=== PATIENT | male | born 1960 | race Caucasian/White ===

== ENCOUNTER 2020-05-14 10:49 | Emergency (ER) | payer OTHER ==
[~2020-05-14 10:49] MED LIST: AUGMENTIN 875-1 EACH PO; CYCLOBENZAPRINE10 MG PO; CYMBALTA60 MG PO; GLUCOPHAGE500 MG PO; HUMALOG100 UNIT/1 SQ; LIPITOR40 MG PO; LITHIUM CARBON300 M4 PO; METOPROLOL TART25 MG PO; NORVASC5 MG PO; PROTONIX40 MG PO; TOUJEO MAX300 UNIT/1 SQ; VITAMIN D10000 UNIT PO; XANAX XR0.5 MG PO; ZESTRIL40 MG PO
[2020-05-14 11:40] LABS: HEMOGLOBIN 13.4 gm/dl (14.0-17.5); RED BLOOD COUNT 4.49 M/UL (4.20-5.50); WHITE BLOOD COUNT 14.4 K/UL (4.5-11.0)
[2020-05-14 12:23] LABS: BUN/CREATININE RATIO 21 (0-10)
[2020-05-14] MEDS ORDERED: BENTYL 20MG TAB20 MG PO (15:40)
[2020-05-14] MEDS ORDERED: ZOFRAN4 MG PO (15:40)
== END 2020-05-14 16:04 | disposition home or self-care (01) ==
LOC: ER1 10:49
PROVIDERS: Emergency Medicine
DX: K52.9 Noninfective gastroenteritis and colitis, unspecified (principal); E11.9 Type 2 diabetes mellitus without complications; I10 Essential (primary) hypertension; Z90.49 Acquired absence of other specified parts of digestive tract; Z79.4 Long term (current) use of insulin
CPT/HCPCS: 36415; 71045; 80053; 81001; 82150; 82550; 82553; 83690; 83874; 84484; 85025; 85610; 85730; 93005; 96374; 96375; 99284; J2270; J2405; Q9967